=== PATIENT | female | born 1975 | race Caucasian/White ===

== ENCOUNTER 2016-05-25 09:18 | Emergency (ER) | payer BC ==
[~2016-05-25] VITALS: Wt 60.0 kg
[~2016-05-25 09:18] MED LIST: DOXY100T20 PO; FLUC150T17 PO; HYDR-3498 PO; IBUP-1542 PO; METGEL45 TOP; METR500T14 PO; MICO24CM3 VAG
[2016-05-25] MEDS ORDERED: CEFTRIAXONE 250 MG INJ IM ONE (10:00)
[2016-05-25] MEDS ORDERED: LIDOCAINE 1% (MDV) 20 ML INJ IM ONE (10:00)
[2016-05-25] MEDS ORDERED: AZITHROMYCIN 250 MG TAB PO ONE (10:00)
[2016-05-25] MEDS ORDERED: BEN25 PO (10:03)
[2016-05-25] MEDS ORDERED: PRED20TA PO (10:03)
[2016-05-25] MEDS ORDERED: FLUC150T17 PO (10:03)
--- NOTE | 2016-05-25 10:36 | ERD ---
ER Documentation Chief Complaint Date/Time DATE: 05/25/16 TIME: 10:32 Chief Complaint rash to buttocks after botox injections 2 years ago, onset 2 mos of itching HPI 41-year-old female comes in with a rash on the buttocks 2 months after getting what she was told to be Botox injections for breast augmentation 10 years ago. She states that she received an injection from an unlicensed individual and has not done any other work since then. She does not have any history of implants according to her. Patient also comes in with vaginal discharge she has had for 2 months now. Upon electronic medical review it appears that the patient has been here many times in the past for vaginal discharge treated with Diflucan as well as nodule. ROS All systems reviewed and are negative except as per history of present illness. Medications Home Meds Active Scripts Fluconazole* (Diflucan*) 150 Mg Tablet, 150 MG PO ONCE, #1 TAB Prov:JUDY CAMACHO PA-C 05/25/16 Diphenhydramine Hcl* (Benadryl*) 25 Mg Cap, 25 MG PO Q6, #30 CAP Prov:JUDY CAMACHO PA-C 05/25/16 Prednisone* (Prednisone*) 20 Mg Tab, 40 MG PO DAILY for 4 Days, TAB Prov:JUDY CAMACHO PA-C 05/25/16 Hydrocodone Bit-Acetaminophen* ([place]*) 5-325 Mg Tab, 1 TAB PO Q4H Y for SEVERE PAIN LEVEL 7-10, #10 TAB Prov:RUSLAN TATE NP 11/05/15 Doxycycline Hyclate* (Doxycycline Hyclate*) 100 Mg Tablet.dr, 100 MG PO BID for 14 Days, TAB Prov:RUSLAN TATE NP 11/05/15 Metronidazole* (Metronidazole*) 500 Mg Tablet, 500 MG PO BID for 14 Days, TAB Prov:RUSLAN TATE NP 11/05/15 Miconazole Nitrate* (Monistat 3*) 24 Gm Cmb.pf.crm, 1 APPFUL VAG HS for 3 Days, TUB X 3 Prov:RAMIRO MACKENZIE 08/14/15 Metronidazole* (Metronidazole*) 500 Mg Tablet, 500 MG PO BID for 7 Days, TAB Prov:RAMIRO MACKENZIE 08/14/15 Fluconazole* (Diflucan*) 150 Mg Tablet, 150 MG PO ONCE, #2 TAB Prov:RAMIRO MACKENZIE Raheem 08/14/15 Metronidazole* (Metrogel*) 0.75% -45 Gram Gel, 1 APPLIC TOP BID, #1 TUB Prov:SHANNAN LIANG PA-C 07/27/15 Fluconazole* (Diflucan*) 150 Mg Tablet, 150 MG PO ONCE, #1 TAB Prov:SHANNAN LIANG PA-C 07/27/15 Ibuprofen* (Motrin*) 600 Mg Tab, 600 MG PO Q6H Y for PAIN AND OR ELEVATED TEMP, #30 TAB Prov:MARIAM WARD MD 06/07/15 Allergies Allergies: Coded Allergies: Penicillins (Verified Allergy, Unknown, 07/27/15) PMhx/Soc History of Surgery: Yes (hysterectomy) Anesthesia Reaction: No Hx Neurological Disorder: No Hx Respiratory Disorders: No Hx Cardiac Disorders: No Hx Psychiatric Problems: No Hx Miscellaneous Medical Probl: Yes (UTI,Yeast Infection, BREAST AUGMENTATION) Hx Alcohol Use: Yes (social- beer) Hx Substance Use: No Hx Tobacco Use: No Smoking Status: Never smoker Physical Exam Vitals Vital Signs Date Time Temp Pulse Resp B/P Pulse Ox O2 Delivery O2 Flow Rate FiO2 05/25/16 09:22 98.6 60 20 122/78 100 Physical Exam General: Well-developed, well-nourished. The patient appears in no acute distress. HEENT: Head is normocephalic, atraumatic. No scleral icterus. Neck: Supple. Nontender. Lungs: Clear to auscultation. Normal air movement. Heart: Regular rate and rhythm. S1 and S2 are normal. No murmurs, gallops, or rubs. Abdomen: Soft, nontender, nondistended. Bowel sounds are normoactive. : large amount of vaginal discharge in the vault, no CMT tenderness. No bleeding Extremities: No clubbing or cyanosis. Normal pulses. Moving extremities x 4. No weakness. Neurologic: Alert and oriented 3. No focal deficits. Skin: Scant erythema on both buttocks, no nodules, no abscess Results 24 hrs Current Medications Medications (Trade) Dose Ordered Sig/Yolanda Route PRN Reason Start Time Stop Time Status Last Admin Dose Admin Ceftriaxone Sodium (Rocephin) 250 mg ONCE ONCE IM 05/25/16 10:00 2/11/17 10:17 DC 05/25/16 09:57 Lidocaine (Xylocaine 1% (Mdv) 20 ml) 3 ml ONCE ONCE IM 05/25/16 10:00 05/25/16 10:17 DC 05/25/16 09:57 Azithromycin (Zithromax) 1,000 mg ONCE ONCE PO 05/25/16 10:00 05/25/16 10:17 DC 05/25/16 09:57 Procedures/MDM ED course: Patient was given Rocephin 250 mg IM, Zithromax 1 g p.o. MDM: 41-year-old female comes in with vaginitis, as well as what appears to be an allergic reaction from some unknown source of injectionin the buttocks 2 years ago. The skin examination shows a mild allergic reaction without evidence of an abscess, cellulitis or nodules. There is no wound or dehiscence. She was treated with Rocephin and Zithromax given her vaginal discharge she has had for 2 months, no evidence of PID at this time, ovarian torsion, tubo-ovarian abscess. Departure Diagnosis: Primary Impression: Vaginitis Additional Impression: Rash Condition: Good Patient Instructions: Dermatitis, Non-Specific, Vaginitis, Bacterial, Vaginitis , Patti Additional Instructions: Llame al doctor MAANA y patricia jaylon JERRY PARA DENTRO DE 1-2 STILL.Dgale a la secretaria que nosotros le instruimos hacer esta jerry.Avise o llame si dean condicin se empeora antes de la jerry. Regresa aqui si peor o no mejor. JUDY CAMACHO PA-C May 25, 2016 10:36
== END 2016-05-25 10:17 | disposition home or self-care (01) ==
LOC: FTE 09:18
DX: N76.0 Acute vaginitis (principal)
CPT/HCPCS: 87591; 96372; J0696; Z7502; Z7610

== ENCOUNTER 2016-07-25 11:33 | Emergency (ER) | payer BC ==
[~2016-07-25] VITALS: Ht 152.4 cm; Wt 59.0 kg
[~2016-07-25 11:33] MED LIST changes: +BEN25 PO; +PRED20TA PO
[2016-07-25 11:35] VITALS: Ht 152.4 cm; Wt 59.0 kg
[2016-07-25] MEDS ORDERED: KETOROLAC 30 MG INJ IM STA (11:48)
--- NOTE | 2016-07-25 12:03 | ERD ---
ER Documentation Chief Complaint Date/Time DATE: 07/25/16 TIME: 12:00 Chief Complaint back pain HPI This a 41-year-old female who presents the emergency department today complaining of back pain for the past 3-4 months. Patient states that 2 months ago she had x-rays that were negative. States she was told that something might have " dislocated" states that the initial injury occurred when she was taking off a very tight shirt and felt a sharp stabbing her back. She is taking Motrin for pain. States she went to go to a primary care doctor but was told initially did not take her insurance and so she came here. States that when she came to the emergency department the doctor's office called her back and told her they did take her insurance. Patient stated that she thought that the reason she was turned away was for "race relations" .denies any fevers or chills. Denies any shortness of breath or cough. ROS All systems reviewed and are negative except as per history of present illness. Medications Home Meds Active Scripts Acetaminophen* (Tylophen*) 500 Mg Capsule, 1 CAP PO Q6H Y for PAIN AND OR ELEVATED TEMP, #30 CAP Prov:HITESH MITCHELL PA-C 07/25/16 Naproxen* (Naprosyn*) 500 Mg Tablet, 500 MG PO BID Y for PAIN AND/OR INFLAMMATION, #30 TAB Prov:HITESH MITCHELL PA-C 07/25/16 Fluconazole* (Diflucan*) 150 Mg Tablet, 150 MG PO ONCE, #1 TAB Prov:JUDY CAMACHO PA-C 05/25/16 Diphenhydramine Hcl* (Benadryl*) 25 Mg Cap, 25 MG PO Q6, #30 CAP Prov:JUDY CAMACHO PA-C 05/25/16 Prednisone* (Prednisone*) 20 Mg Tab, 40 MG PO DAILY for 4 Days, TAB Prov:JUDY CAMACHO PA-C 05/25/16 Hydrocodone Bit-Acetaminophen* ([place]*) 5-325 Mg Tab, 1 TAB PO Q4H Y for SEVERE PAIN LEVEL 7-10, #10 TAB Prov:RUSLAN TATE NP 11/05/15 Doxycycline Hyclate* (Doxycycline Hyclate*) 100 Mg Tablet.dr, 100 MG PO BID for 14 Days, TAB Prov:RUSLAN TATE NP 11/05/15 Metronidazole* (Metronidazole*) 500 Mg Tablet, 500 MG PO BID for 14 Days, TAB Prov:FRANCISCOMARCOSRUSLAN LARSON POWER WHEELCHAIR MECHANIC 11/05/15 Miconazole Nitrate* (Monistat 3*) 24 Gm Cmb.pf.crm, 1 APPFUL VAG HS for 3 Days, TUB X 3 Prov:RAMIRO MACKENZIE C 08/14/15 Metronidazole* (Metronidazole*) 500 Mg Tablet, 500 MG PO BID for 7 Days, TAB Prov:RAMIRO MACKENZIE C 08/14/15 Fluconazole* (Diflucan*) 150 Mg Tablet, 150 MG PO ONCE, #2 TAB Prov:RAMIRO MACKENZIE Raheem 08/14/15 Metronidazole* (Metrogel*) 0.75% -45 Gram Gel, 1 APPLIC TOP BID, #1 TUB Prov:SHANNAN LIANG PA-C 07/27/15 Fluconazole* (Diflucan*) 150 Mg Tablet, 150 MG PO ONCE, #1 TAB Prov:SHANNAN LIANG PA-C 07/27/15 Ibuprofen* (Motrin*) 600 Mg Tab, 600 MG PO Q6H Y for PAIN AND OR ELEVATED TEMP, #30 TAB Prov:MARIAM WARD MD 06/07/15 Allergies Allergies: Coded Allergies: Penicillins (Verified Allergy, Unknown, 07/27/15) PMhx/Soc History of Surgery: Yes (hysterectomy) Anesthesia Reaction: No Hx Neurological Disorder: No Hx Respiratory Disorders: No Hx Cardiac Disorders: No Hx Psychiatric Problems: No Hx Miscellaneous Medical Probl: Yes (UTI,Yeast Infection, BREAST AUGMENTATION) Hx Alcohol Use: Yes (social- beer) Hx Substance Use: No Hx Tobacco Use: No Physical Exam Vitals Vital Signs Date Time Temp Pulse Resp B/P Pulse Ox O2 Delivery O2 Flow Rate FiO2 07/25/16 11:35 98.1 65 18 106/65 99 Physical Exam Const: No acute distress Head: Atraumatic Eyes: Normal Conjunctiva ENT: Normal External Ears, Nose and Mouth. Neck: Full range of motion..~ No meningismus. Resp: Clear to auscultation bilaterally. No absent breath sounds. No wheezing Cardio: Regular rate and rhythm, no murmurs Abd: Soft, non tender, non distended. Normal bowel sounds Skin: No petechiae or rashes Back: No midline or flank tenderness. No midline tenderness thoracic spine. Tenderness to palpation medial border of right scapula. Full active range of motion at arm. Ext: No cyanosis, or edema. Full active range of motion right arm Neur: Awake and alert Psych: Normal Mood and Affect Results 24 hrs Current Medications Medications (Trade) Dose Ordered Sig/Yolanda Route PRN Reason Start Time Stop Time Status Last Admin Dose Admin Ketorolac Tromethamine (Toradol) 30 mg ONCE STAT IM 07/25/16 11:48 07/25/16 11:49 DC Procedures/MDM This 41-year-old female who presents to the emergency department today complaining of some upper back pain for the past 3-4 months. Patient has had x- rays that are negative. Patient's physical exam is benign with the exception of some tender to palpation along the medial border of the scapula. Patient has full active range of motion of her shoulder there is no evidence of dislocation. Patient has had negative x-rays in the past. Do not feel that she requires repeat imaging at this time. Patient symptoms at this time is consistent with musculoskeletal strain. Low suspicion for acute fracture, dislocation especially given the mechanism of injury and location of her pain. Patient denies any chest pain or shortness of breath or difficulty breathing. She is afebrile and otherwise well-appearing. Her oxygen saturation 99%. Low suspicion for PE, pneumonia, pleural effusion, abscess, pneumothorax. Patient was given a Toradol injection here in the emergency department.Patient will be given a prescription for Naprosyn and Tylenol for home. And the patient 's pain is chronic I do not feel that she would benefit from narcotics at this time. She was instructed to follow back up with the primary care doctor for further evaluation and management possible referral to orthopedics for physical therapy. At this time the patient is stable for discharge and outpatient management. Patient should follow up with their PCP in the next 1-2 days. They may return to the emergency department sooner for any persistent or worsening of symptoms. Patient understood and agreed with the plan. Departure Diagnosis: Primary Impression: Back pain Back pain location: thoracic back pain Chronicity: chronic Back pain laterality: right Qualified Code: M54.6 - Chronic right-sided thoracic back pain Condition: Fair HITESH MITCHELL PA-C Jul 25, 2016 12:03
[2016-07-25] MEDS ORDERED: NAPR-260 PO (12:04)
[2016-07-25] MEDS ORDERED: ACET500C5 PO (12:04)
== END 2016-07-25 12:32 | disposition home or self-care (01) ==
LOC: FTE 11:33
DX: M54.6 Pain in thoracic spine (principal)
CPT/HCPCS: 96372; J1885; Z7502

== ENCOUNTER 2016-07-28 13:22 | Emergency (ER) | payer BC ==
[~2016-07-28] VITALS: Ht 162.6 cm; Wt 59.0 kg
[~2016-07-28 13:22] MED LIST changes: +ACET500C5 PO; +NAPR-260 PO
[2016-07-28 13:36] VITALS: Ht 162.6 cm; Wt 59.0 kg
[2016-07-28] MEDS ORDERED: KETOROLAC 30 MG INJ IM STA (14:17)
--- NOTE | 2016-07-28 14:23 | ERD ---
ER Documentation Chief Complaint Date/Time DATE: 07/28/16 TIME: 14:19 Chief Complaint 10/21 mid back pain x 4 days HPI This is a 41-year-old female presenting to the emergency department for right scapular pain. Patient states she has had this pain on and off for over 3 months however the pain has worsened over the last 2 weeks. Patient states she has had x-ray imaging done before and was told everything was "normal." Patient denies any new injury or trauma to area. Denies chest pain, heart palpitations or shortness of breath. Patient went to her primary care provider but states she was refused to be seen. Patient states about 1 year ago she felt "like a bone popped out." No swelling, erythema, warmth or drainage from the arm. No fevers or chills. No urinary or fecal incontinence. ROS All systems reviewed and are negative except as per history of present illness. Medications Home Meds Active Scripts Ibuprofen* (Motrin*) 600 Mg Tab, 600 MG PO Q6, #15 TAB Prov:TANG BARRETT NP 07/28/16 Acetaminophen* (Tylophen*) 500 Mg Capsule, 1 CAP PO Q6H Y for PAIN AND OR ELEVATED TEMP, #30 CAP Prov:HITESH MITCHELL PA-C 07/25/16 Naproxen* (Naprosyn*) 500 Mg Tablet, 500 MG PO BID Y for PAIN AND/OR INFLAMMATION, #30 TAB Prov:HITESH MITCHELL PA-C 07/25/16 Fluconazole* (Diflucan*) 150 Mg Tablet, 150 MG PO ONCE, #1 TAB Prov:JUDY CAMACHO PA-C 05/25/16 Diphenhydramine Hcl* (Benadryl*) 25 Mg Cap, 25 MG PO Q6, #30 CAP Prov:JUDY CAMACHO PA-C 05/25/16 Prednisone* (Prednisone*) 20 Mg Tab, 40 MG PO DAILY for 4 Days, TAB Prov:JUDY CAMACHO PA-C 05/25/16 Hydrocodone Bit-Acetaminophen* ([place]*) 5-325 Mg Tab, 1 TAB PO Q4H Y for SEVERE PAIN LEVEL 7-10, #10 TAB Prov:RUSLAN TATE NP 11/05/15 Doxycycline Hyclate* (Doxycycline Hyclate*) 100 Mg Tablet.dr, 100 MG PO BID for 14 Days, TAB Prov:RUSLAN TATE NP 11/05/15 Metronidazole* (Metronidazole*) 500 Mg Tablet, 500 MG PO BID for 14 Days, TAB Prov:FRANCISCOMARCOSRUSLAN LARSON [employer]OLDING PROCESS TECHNICIAN 11/05/15 Miconazole Nitrate* (Monistat 3*) 24 Gm Cmb.pf.crm, 1 APPFUL VAG HS for 3 Days, TUB X 3 Prov:GURDEEPRAMIRO Raheem 08/14/15 Metronidazole* (Metronidazole*) 500 Mg Tablet, 500 MG PO BID for 7 Days, TAB Prov:GURDEEPRAMIRO C 08/14/15 Fluconazole* (Diflucan*) 150 Mg Tablet, 150 MG PO ONCE, #2 TAB Prov:GURDEEPRAMIRO Raheem 08/14/15 Metronidazole* (Metrogel*) 0.75% -45 Gram Gel, 1 APPLIC TOP BID, #1 TUB Prov:SHANNAN LIANG PA-C 07/27/15 Fluconazole* (Diflucan*) 150 Mg Tablet, 150 MG PO ONCE, #1 TAB Prov:SHANNAN LIANG PA-C 07/27/15 Ibuprofen* (Motrin*) 600 Mg Tab, 600 MG PO Q6H Y for PAIN AND OR ELEVATED TEMP, #30 TAB Prov:MARIAM WARD MD 06/07/15 Allergies Allergies: Coded Allergies: Penicillins (Verified Allergy, Unknown, 07/28/16) PMhx/Soc History of Surgery: Yes (hysterectomy) Anesthesia Reaction: No Hx Neurological Disorder: No Hx Respiratory Disorders: No Hx Cardiac Disorders: No Hx Psychiatric Problems: No Hx Miscellaneous Medical Probl: Yes (UTI,Yeast Infection, BREAST AUGMENTATION) Hx Alcohol Use: Yes (social- beer) Hx Substance Use: No Hx Tobacco Use: No Physical Exam Vitals Vital Signs Date Time Temp Pulse Resp B/P Pulse Ox O2 Delivery O2 Flow Rate FiO2 07/28/16 13:36 98.1 57 18 106/55 98 Physical Exam Const: No acute distress, alert Head: Atraumatic Eyes: Normal Conjunctiva ENT: Normal External Ears, Nose and Mouth. Neck: Full range of motion..~ No meningismus. Resp: Clear to auscultation bilaterally. No wheezing, rhonchi or crackles. No labored breathing or stridor. Cardio: Regular rate and rhythm, no murmurs Abd: Soft, non tender, non distended. Normal bowel sounds Skin: No petechiae or rashes Back: No midline or flank tenderness Ext: No cyanosis, or edema Neur: Awake and alert Psych: Normal Mood and Affect Results 24 hrs Current Medications Medications (Trade) Dose Ordered Sig/Yolanda Route PRN Reason Start Time Stop Time Status Last Admin Dose Admin Ketorolac Tromethamine (Toradol) 30 mg ONCE STAT IM 07/28/16 14:17 07/28/16 14:19 DC 07/28/16 15:01 Procedures/MDM ED COURSE: The patient was stable throughout ED course. I kept the patient and/or family informed of laboratory and diagnostic imaging results throughout the ED course. Imaging Chest x-ray Patient: OLINDA WERNER : 1975 Age: 41 Sex: F MR #: [id number] DOS: 07/28/16 1417 Ordering MD: TANG BARRETT NP Location: [facility] Room/Bed: PROCEDURE: XR Chest. CLINICAL INDICATION: Chest pain TECHNIQUE: Anterior chest x-ray. COMPARISON: 06/07/2015 FINDINGS: The lungs are clear. No pleural effusion identified. There is no evidence of pneumothorax. The cardiomediastinal silhouette is unremarkable. The soft tissues are normal. Osseous structures are unremarkable. IMPRESSION: 1. No acute disease is seen in the chest. EKG: As reviewed by Dr. Flower Rate/Rhythm: Sinus bradycardia with heart rate 44 bpm QRS, ST, T-waves: No changes consistent w/ acute ischemia Impression: No evidence of ischemia or arrhythmia MDM: 41-year-old female presents emergency department for right scapular back pain. Patient states this is chronic pain over the past 3 months however has worsened the last 2 weeks. Patient was seen here on 07/25/2016 and was treated with Toradol IM. Patient was discharged with Naprosyn and Tylenol and states these medications are not working.Patient given Toradol on the ED and states pain has improved significantly. Chest x-ray reviewed by radiologist as no acute disease is seen in the chest. EKG as reviewed by Dr. Flower shows sinus bradycardia with heart rate [address] elevation. Vital signs remained stable. Oxygen saturation 99% on room air. No signs or symptoms of respiratory distress. No cough, shortness of breath or difficulty breathing. Patient denies chest pain, heart palpitations, weakness or fatigue. Low suspicion for acute LA, NSTEMI, pneumothorax, pleural effusion, pneumonia or surgical etiology. Diagnosis is back pain, musculoskeletal. Patient is appropriate for outpatient management will be given prescription for ibuprofen. Instructed patient to follow-up with primary care provider in the next 2-3 days for reassessment. Resources provided. Return to ED for any high fever, chest pain, difficulty breathing, shortness breath, wheezing, vomiting, diarrhea, abdominal pain or any new or worsening symptoms. Patient verbalizes understanding. All questions answered at discharge. Azeri translation use during this encounter. Departure Diagnosis: Primary Impression: Back pain Chronicity: chronic Back pain laterality: right Sciatica presence: without sciatica Condition: Stable TANG BARRETT NP Jul 28, 2016 14:23
--- NOTE | 2016-07-28 15:06 | RADRPT ---
PROCEDURE: XR Chest. CLINICAL INDICATION: Chest pain TECHNIQUE: Anterior chest x-ray. COMPARISON: 06/07/2015 FINDINGS: The lungs are clear. No pleural effusion identified. There is no evidence of pneumothorax. The cardiomediastinal silhouette is unremarkable. The soft tissues are normal. Osseous structures are unremarkable. IMPRESSION: 1. No acute disease is seen in the chest. RPTAT: QQ .Syd Sherman MD, MD Date Time Electronically viewed and signed by .Syd Sherman MD, MD on 07/28/2016 15:05 .M/
[2016-07-28] MEDS ORDERED: IBUP-1542 PO (15:11)
== END 2016-07-28 15:22 | disposition home or self-care (01) ==
LOC: FTE 13:22
DX: M54.9 Dorsalgia, unspecified (principal); R07.9 Chest pain, unspecified
CPT/HCPCS: 71010; 93005; J1885; 96372

== ENCOUNTER 2016-08-14 07:00 | Emergency (ER) | payer BC ==
[~2016-08-14] VITALS: Ht 157.5 cm; Wt 61.0 kg
[2016-08-14 07:03] VITALS: Ht 157.5 cm; Wt 61.0 kg
[2016-08-14] MEDS ORDERED: morphine 4 MG/ML VIAL IV STA (07:37)
[2016-08-14] MEDS ORDERED: ONDANSETRON 4 MG INJ IV STA ×2 (07:37→09:55)
[2016-08-14] MEDS ORDERED: KETOROLAC 30 MG INJ IV STA (07:40)
[2016-08-14 08:19] LABS: ADD SCAN DIFF NO
[2016-08-14 08:24] LABS: BASOPHIL # 0.1 10^3/ul (0.0-0.1); BASOPHILS % 1.2 % (0.0-2.0); EOSINOPHILS # 0.1 10^3/ul (0.0-0.5); EOSINOPHILS % 2.2 % (0.0-7.0); HEMOGLOBIN 11.8 g/dl (12.0-16.0); LYMPHOCYTES # 1.9 10^3/ul (0.8-2.9); LYMPHOCYTES % 37.5 % (15.0-51.0); MEAN CORPUSCULAR HEMOGLOBIN 31.3 pg (29.0-33.0); MEAN CORPUSCULAR HGB CONC 34.7 g/dl (32.0-37.0); MEAN CORPUSCULAR VOLUME 90.2 fl (82.0-101.0); MEAN PLATELET VOLUME 10.3 fl (7.4-10.4); MONOCYTE # 0.4 10^3/ul (0.3-0.9); MONOCYTES % 8.3 % (0.0-11.0); NEUTROPHIL # 2.5 10^3/ul (1.6-7.5); NEUTROPHILS % 50.4 % (39.0-77.0); PLATELET COUNT 221 10^3/UL (140-415); RED BLOOD COUNT 3.77 10^6/ul (4.20-5.40); RED CELL DISTRIBUTION WIDTH 11.6 % (11.5-14.5); WHITE BLOOD COUNT 4.9 10^3/ul (4.8-10.8)
[2016-08-14 08:25] LABS: ADD UMIC NO; URINE BILIRUBIN (Dip) NEGATIVE (NEGATIVE); URINE BLOOD (Dip) NEGATIVE (NEGATIVE); URINE COLOR LT. YELLOW (YELLOW); URINE GLUCOSE (Dip) NEGATIVE (NEGATIVE); URINE KETONES (Dip) NEGATIVE (NEGATIVE); URINE LEUKOCYTE ESTERASE (Dip) NEGATIVE (NEGATIVE); URINE NITRITE (Dip) NEGATIVE (NEGATIVE); URINE TOTAL PROTEIN (Dip) NEGATIVE (NEGATIVE); URINE UROBILINOGEN (Dip) 0.2 E.U./dL (0.1-1.0)
--- NOTE | 2016-08-14 08:29 | RADRPT ---
PROCEDURE: US Pelvis CLINICAL INDICATION: Left pelvic pain TECHNIQUE: Sonographic evaluation of the pelvis was performed utilizing both transabdominal and tr ansvaginal technique. Curved array transabdominal transducer technique as well as a high frequency endovaginal probe was utilized. Images were reviewed on the high-resolution PACS workstation. COMPARISON: No prior studies are available for comparison. FINDINGS: The uterus is surgically absent. The right ovary measures 3.7 x 2.6 x 2.8 cm in dimension. The left ovary was not visualized. The r ight ovary is normal in size, echogenicity, and morphology. Normal Doppler flow is demonstrated. T here are no adnexal masses. There is no significant free fluid in the pelvis. IMPRESSION: 1. Status post hysterectomy. 2. Normal appearance of the right ovary. 3. The left ovary was not visualized. RPTAT: HH .Seda Vang MD, MD Date Time Electronically viewed and signed by .Seda Vang MD, on 08/14/2016 08:29 .G/
--- NOTE | 2016-08-14 08:30 | RADRPT ---
PROCEDURE: Retroperitoneal US. CLINICAL INDICATION: Flank pain, pelvic pain TECHNIQUE: Multiple sonographic images of the kidneys and retroperitoneum were obtained. The imag es were reviewed on a PACS workstation. COMPARISON: No prior studies are available for comparison. FINDINGS: The kidneys are normal in size, contour, cortical thickness and cortical echogenicity. The right kidney measures 12.2 cm. The left kidney measures 12.1 cm. No kidney stones are visualized. There is no evidence for hydronephrosis. The urinary bladder is decompressed and not well seen. RPTAT: AA IMPRESSION: Unremarkable retroperitoneal ultrasound. .Tarik Kelley MD, MD Date Time Electronically viewed and signed by .Tarik Kelley MD, on 08/14/2016 08:30 .S/
[2016-08-14 08:39] LABS: ALBUMIN 3.4 g/dl (3.3-4.9)
[2016-08-14 08:40] LABS: POTASSIUM 3.6 mmol/L (3.5-5.1)
[2016-08-14 08:42] LABS: ALBUMIN/GLOBULIN RATIO 1.25; BILIRUBIN,INDIRECT 0.4 mg/dl (0-1.1); BILIRUBIN,TOTAL 0.4 mg/dl (0.2-1.3); CREATININE 0.53 mg/dl (0.44-1.00); TOTAL PROTEIN 6.1 g/dl (6.1-8.1)
[2016-08-14 08:43] LABS: CALCIUM 8.4 mg/dl (8.4-10.2)
--- NOTE | 2016-08-14 08:49 | ERD ---
ER Documentation Chief Complaint Date/Time DATE: 08/14/16 TIME: 08:45 Chief Complaint abd pain x 4 days HPI 41-year-old female complaining of left pelvic pain 4 days. Pain is gradual onset and constant. The pain has becoming more generalized over time. She reports decreased appetite and nausea, but no vomiting or diarrhea. History of hysterectomy and hypertension, not taking any medications. Denies fever or chills. Denies dysuria. ROS All systems reviewed and are negative except as per history of present illness. Medications Home Meds Active Scripts Ibuprofen* (Motrin*) 600 Mg Tab, 600 MG PO Q6H Y for PAIN AND OR ELEVATED TEMP, #30 TAB Prov:ANDREW MORTENSEN NP 08/14/16 Ibuprofen* (Motrin*) 600 Mg Tab, 600 MG PO Q6, #15 TAB Prov:TANG BARRETT NP 07/28/16 Acetaminophen* (Tylophen*) 500 Mg Capsule, 1 CAP PO Q6H Y for PAIN AND OR ELEVATED TEMP, #30 CAP Prov:HITESH MITCHELL PA-C 07/25/16 Naproxen* (Naprosyn*) 500 Mg Tablet, 500 MG PO BID Y for PAIN AND/OR INFLAMMATION, #30 TAB Prov:HITESH MITCHELL PA-C 07/25/16 Fluconazole* (Diflucan*) 150 Mg Tablet, 150 MG PO ONCE, #1 TAB Prov:JUDY CAMACHO PA-C 05/25/16 Diphenhydramine Hcl* (Benadryl*) 25 Mg Cap, 25 MG PO Q6, #30 CAP Prov:JUDY CAMACHO PA-C 05/25/16 Prednisone* (Prednisone*) 20 Mg Tab, 40 MG PO DAILY for 4 Days, TAB Prov:JUDY CAMACHO PA-C 05/25/16 Hydrocodone Bit-Acetaminophen* ([place]*) 5-325 Mg Tab, 1 TAB PO Q4H Y for SEVERE PAIN LEVEL 7-10, #10 TAB Prov:RUSLAN TATE NP 11/05/15 Doxycycline Hyclate* (Doxycycline Hyclate*) 100 Mg Tablet.dr, 100 MG PO BID for 14 Days, TAB Prov:RUSLAN TATE NP 11/05/15 Metronidazole* (Metronidazole*) 500 Mg Tablet, 500 MG PO BID for 14 Days, TAB Prov:LEARUSLANGisela Gray NP 11/05/15 Miconazole Nitrate* (Monistat 3*) 24 Gm Cmb.pf.crm, 1 APPFUL VAG HS for 3 Days, TUB X 3 Prov:RAMIRO MACKENZIE C 08/14/15 Metronidazole* (Metronidazole*) 500 Mg Tablet, 500 MG PO BID for 7 Days, TAB Prov:RAMIRO MACKENZIE C 08/14/15 Fluconazole* (Diflucan*) 150 Mg Tablet, 150 MG PO ONCE, #2 TAB Prov:RAMIRO MACKENZIE C 08/14/15 Metronidazole* (Metrogel*) 0.75% -45 Gram Gel, 1 APPLIC TOP BID, #1 TUB Prov:SHANNAN LIANG PA-C 07/27/15 Fluconazole* (Diflucan*) 150 Mg Tablet, 150 MG PO ONCE, #1 TAB Prov:SHANNAN LIANG PA-C 07/27/15 Ibuprofen* (Motrin*) 600 Mg Tab, 600 MG PO Q6H Y for PAIN AND OR ELEVATED TEMP, #30 TAB Prov:MARIAM WARD MD 06/07/15 Allergies Allergies: Coded Allergies: Penicillins (Verified Allergy, Unknown, 07/28/16) PMhx/Soc History of Surgery: Yes (hysterectomy) Anesthesia Reaction: No Hx Neurological Disorder: No Hx Respiratory Disorders: No Hx Cardiac Disorders: No Hx Psychiatric Problems: No Hx Miscellaneous Medical Probl: Yes (UTI,Yeast Infection, BREAST AUGMENTATION) Hx Alcohol Use: Yes (social- beer) Hx Substance Use: No Hx Tobacco Use: No Physical Exam Vitals Vital Signs Date Time Temp Pulse Resp B/P Pulse Ox O2 Delivery O2 Flow Rate FiO2 08/14/16 07:03 98.5 89 18 146/76 99 Physical Exam General: Well-developed, well-nourished, conscious and coherent, in no distress Skin: Warm and dry without rash, good texture and turgor Head: Normocephalic without evidence of trauma Eyes: Sclera and conjunctivae normal; pupils equal, round, and reactive to light; extraocular movements are intact Neck: Supple without meningismus or adenopathy. Carotids are equal. Trachea midline. No bruits or JVD Chest: Normal AP diameter, good expansion without retractions. Nontender. Lungs are clear to auscultate bilaterally with good tidal volume Heart: Regular rate and rhythm. No murmur, rub, or gallop heard Abdomen: Soft, diffusely tender with guarding. No masses or rebound. Bowel sounds are active. No hepatosplenomegaly Back: Without spinal or CVA tenderness Pelvis: Diffusely tender and stable to compression Extremities: Full range of motion. Good strength bilaterally. No clubbing, cyanosis, or edema. Peripheral pulses are intact. Sensation intact Neuro: Alert and oriented. Mental status normal, speech clear. Cranial nerves grossly intact Result Diagram: 08/14/16 0800 08/14/16 0800 Results 24 hrs Laboratory Tests Test 08/14/16 08:00 White Blood Count 4.910^3/ul Red Blood Count 3.7710^6/ul Hemoglobin 11.8g/dl Hematocrit 34.0% Mean Corpuscular Volume 90.2fl Mean Corpuscular Hemoglobin 31.3pg Mean Corpuscular Hemoglobin Concent 34.7g/dl Red Cell Distribution Width 11.6% Platelet Count 29990^3/UL Mean Platelet Volume 10.3fl Neutrophils % 50.4% Lymphocytes % 37.5% Monocytes % 8.3% Eosinophils % 2.2% Basophils % 1.2% Nucleated Red Blood Cells % 0.0/100WBC Neutrophils # 2.510^3/ul Lymphocytes # 1.910^3/ul Monocytes # 0.410^3/ul Eosinophils # 0.110^3/ul Basophils # 0.110^3/ul Nucleated Red Blood Cells # 0.010^3/ul Urine Color LT. YELLOW Urine Clarity CLEAR Urine pH 6.0 Urine Specific [place] 1.025 Urine Ketones NEGATIVE Urine Nitrite NEGATIVE Urine Bilirubin NEGATIVE Urine Urobilinogen 0.2 E.U./dL Urine Leukocyte Esterase NEGATIVE Urine Hemoglobin NEGATIVE Urine Glucose NEGATIVE% Urine Total Protein NEGATIVE Sodium Level 142mmol/L Potassium Level 3.6mmol/L Chloride Level 109mmol/L Carbon Dioxide Level 25mmol/L Anion Gap 12 Blood Urea Nitrogen 12mg/dl Creatinine 0.53mg/dl Glucose Level 67mg/dl Calcium Level 8.4mg/dl Total Bilirubin 0.4mg/dl Direct Bilirubin 0.00mg/dl Indirect Bilirubin 0.4mg/dl Aspartate Amino Transf (AST/SGOT) 24IU/L Alanine Aminotransferase (ALT/SGPT) 23IU/L Alkaline Phosphatase 52IU/L Total Protein 6.1g/dl Albumin 3.4g/dl Globulin 2.70g/dl Albumin/Globulin Ratio 1.25 Lipase 155U/L Current Medications Medications (Trade) Dose Ordered Sig/Yolanda Route PRN Reason Start Time Stop Time Status Last Admin Dose Admin Morphine Sulfate (morphine) 4 mg ONCE STAT IV 08/14/16 07:37 08/14/16 07:41 DC Ondansetron HCl (Zofran Inj) 4 mg ONCE STAT IV 08/14/16 07:37 08/14/16 07:40 DC 08/14/16 08:24 Ketorolac Tromethamine (Toradol) 30 mg ONCE STAT IV 08/14/16 07:40 08/14/16 07:42 DC 08/14/16 08:23 Morphine Sulfate (morphine) 4 mg ONCE ONCE IM 08/14/16 10:00 08/14/16 10:01 DC 08/14/16 10:29 Ondansetron HCl (Zofran Inj) 4 mg ONCE STAT IV 08/14/16 09:55 08/14/16 09:56 DC 08/14/16 10:28 PROCEDURE: US Pelvis. CLINICAL INDICATION: Pelvic pain. TECHNIQUE: Multiple sonographic images of the pelvis were obtained utilizing endovaginal technique. The images were reviewed on a PACS workstation. COMPARISON: Transabdominal study from earlier the same date. FINDINGS: The uterus is surgically absent. The right ovary has a normal echotexture and measures 3.9 x 2.4 x 2.7 cm. There is a 2.0 cm hemorrhagic cyst in the right ovary. The left ovary has a normal echotexture and measures 3.7 x 1.5 x 2.4 cm. There is no free fluid in the cul-de-sac. No adnexal masses are noted. Normal Doppler flow seen to both ovaries. IMPRESSION: 1. Previous hysterectomy. 2. 2.0 cm hemorrhagic cyst in the right ovary. 3. No evidence of ovarian torsion. RPTAT: [facility] Jaime Crowe Physician Date Time Electronically viewed and signed by Jaime Crowe Physician on 08/14/2016 10: 58 JH/ CC: ANDREW MORTENSEN. [facility] PA[facility] Procedures/MDM Well-appearing 41-year-old female presented ED with pelvic pain 4 days. CBC, CMP, lipase, and UA are all unremarkable. Renal ultrasound negative hydronephrosis. Pelvic ultrasound is negative for ovarian torsion. Patient has history of hysterectomy, her test is negative. I doubt ectopic . She was seen here 1 year ago for similar pain. CT at that time were unremarkable except for a nonobstructing stone in the right kidney. I think likely the cause of her pain will be recurrent kidney stone with colic. Toradol and morphine IV given to the patient in the ED for pain. Patient is currently comfortable and pain-free. Patient appears well, stable for discharge and outpatient management. Patient advised to increase fluid intake. Medical decision making shared with patient and family. Education provided to patient and family. Patient and family expressed understanding of the plan. Medications on discharge: Ibuprofen. Follow-up: Primary care provider in 2-3 days or return to ED if worse. Departure Diagnosis: Primary Impression: Pelvic pain Condition: Good ANDREW MORTENSEN NP August 14, 2016 08:49
[2016-08-14] MEDS ORDERED: morphine 10 MG INJ IM ONE (10:00)
--- NOTE | 2016-08-14 10:59 | RADRPT ---
PROCEDURE: US Pelvis. CLINICAL INDICATION: Pelvic pain. TECHNIQUE: Multiple sonographic images of the pelvis were obtained utilizing endovaginal technique . The images were reviewed on a PACS workstation. COMPARISON: Transabdominal study from earlier the same date. FINDINGS: The uterus is surgically absent. The right ovary has a normal echotexture and measures 3.9 x 2.4 x 2.7 cm. There is a 2.0 cm hemorrhagic cyst in the right ovary. The left ovary has a normal echotext ure and measures 3.7 x 1.5 x 2.4 cm. There is no free fluid in the cul-de-sac. No adnexal masses are noted. Normal Doppler flow seen to both ovaries. IMPRESSION: 1. Previous hysterectomy. 2. 2.0 cm hemorrhagic cyst in the right ovary. 3. No evidence of ovarian torsion. RPTAT: [facility] Physician Madeleine Date Time Electronically viewed and signed by Physician Madeleine on 08/14/2016 10:58 CAROL/
[2016-08-14] MEDS ORDERED: IBUP-1542 PO (11:20)
[2016-08-14 11:35] VITALS: BP 130/72; PULSE 64; RESP 18; TEMP 97.3
== END 2016-08-14 11:35 | disposition home or self-care (01) ==
LOC: FTE 07:00
DX: R10.2 Pelvic and perineal pain (principal); R11.0 Nausea; I10 Essential (primary) hypertension
CPT/HCPCS: 76775; 76830; 76856; 80053; 81003; 83690; 85025; J1885; J2270; J2405; 36415; 96372; 96374; 96375; 96376

== ENCOUNTER 2016-11-28 15:11 | Emergency (ER) | END 2016-11-28 16:25 | disposition home or self-care (01) | DX: N76.0 Acute vaginitis (principal) | CPT/HCPCS: 81001; Z7502 ==

== ENCOUNTER 2017-02-01 13:07 | Emergency (ER) | payer SELFPAY ==
[~2017-02-01] VITALS: Ht 157.5 cm; Wt 56.0 kg
[~2017-02-01 13:07] MED LIST changes: +CLOT30CR24 TOP; +METR500T PO
[2017-02-01 13:10] VITALS: Ht 157.5 cm; Wt 56.0 kg
[2017-02-01] MEDS ORDERED: IBUPROFEN 200 MG TAB PO ONE (15:30)
--- NOTE | 2017-02-01 15:32 | RADRPT ---
PROCEDURE: XR Right Ankle. CLINICAL INDICATION: Trauma 1 month ago. Right ankle pain. TECHNIQUE: 3 views. Frontal, lateral, and oblique. COMPARISON: None. FINDINGS: There is no fracture or dislocation. The soft tissues are normal. Articular surfaces are intact. There is no lytic or blastic lesion. There is no radiopaque foreign body. IMPRESSION: 1. Normal images of the right ankle. RPTAT: QQ .Samuel Royal MD, MD Date Time Electronically viewed and signed by .Samuel Royal MD, on 02/01/2017 15:32 .R/
[2017-02-01] MEDS ORDERED: NAPR-260 PO (15:43)
--- NOTE | 2017-02-02 19:59 | ERD ---
ER Documentation Chief Complaint Chief Complaint pt bib self with c/o right ankle pain twisted it approx 1 month ago HPI Patient is a 42-year-old female presents to the emergency department with complaints of right ankle pain after twisting it approximately 1 month ago. Associated symptoms include daily pain, swelling, symptoms are worse with walking. Patient took no medication for relief of symptoms. She denies any other injuries or symptoms currently. ROS All systems reviewed and are negative except as per history of present illness. Medications Home Meds Active Scripts Naproxen* (Naprosyn*) 500 Mg Tablet, 500 MG PO BID Y for PAIN AND/OR INFLAMMATION, #20 TAB Prov:PABLO HUSSEIN PA-C 02/01/17 Clotrimazole* (Clotrimazole* AF) 1% - 30 Gm Cream.gm., 1 APPLIC TOP BID for 7 Days, TUB Prov:EUSEBIO BEGUM PA-C 11/28/16 Metronidazole* (Flagyl*) 500 Mg Tablet, 500 MG PO TID for 5 Days, TAB Prov:EUSEBIO BEGUM PA-C 11/28/16 Ibuprofen* (Motrin*) 600 Mg Tab, 600 MG PO Q6H Y for PAIN AND OR ELEVATED TEMP, #30 TAB Prov:ANDREW MORTENSEN INSPECTOR AIDE 08/14/16 Ibuprofen* (Motrin*) 600 Mg Tab, 600 MG PO Q6, #15 TAB Prov:TANG BARRETT INSPECTOR AIDE 07/28/16 Acetaminophen* (Tylophen*) 500 Mg Capsule, 1 CAP PO Q6H Y for PAIN AND OR ELEVATED TEMP, #30 CAP Prov:HITESH MITCHELL PA-C 07/25/16 Naproxen* (Naprosyn*) 500 Mg Tablet, 500 MG PO BID Y for PAIN AND/OR INFLAMMATION, #30 TAB Prov:HITESH MITCHELL PA-C 07/25/16 Fluconazole* (Diflucan*) 150 Mg Tablet, 150 MG PO ONCE, #1 TAB Prov:JUDY CAMACHO PA-C 05/25/16 Diphenhydramine Hcl* (Benadryl*) 25 Mg Cap, 25 MG PO Q6, #30 CAP Prov:JUDY CAMACHO PA-C 05/25/16 Prednisone* (Prednisone*) 20 Mg Tab, 40 MG PO DAILY for 4 Days, TAB Prov:JUDY CAMACHO PA-C 05/25/16 Hydrocodone Bit-Acetaminophen* ([place]*) 5-325 Mg Tab, 1 TAB PO Q4H Y for SEVERE PAIN LEVEL 7-10, #10 TAB Prov:RUSLAN TATE NP 11/05/15 Doxycycline Hyclate* (Doxycycline Hyclate*) 100 Mg Tablet.dr, 100 MG PO BID for 14 Days, TAB Prov:RUSLAN TATE NP 11/05/15 Metronidazole* (Metronidazole*) 500 Mg Tablet, 500 MG PO BID for 14 Days, TAB Prov:RUSLAN TATE NP 11/05/15 Miconazole Nitrate* (Monistat 3*) 24 Gm Cmb.pf.crm, 1 APPFUL VAG HS for 3 Days, TUB X 3 Prov:RAMIRO MACKENZIE 08/14/15 Metronidazole* (Metronidazole*) 500 Mg Tablet, 500 MG PO BID for 7 Days, TAB Prov:RAMIRO MACKENZIE 08/14/15 Fluconazole* (Diflucan*) 150 Mg Tablet, 150 MG PO ONCE, #2 TAB Prov:RAMIRO MACKENZIE 08/14/15 Metronidazole* (Metrogel*) 0.75% -45 Gram Gel, 1 APPLIC TOP BID, #1 TUB Prov:SHANNAN LIANG PA-C 07/27/15 Fluconazole* (Diflucan*) 150 Mg Tablet, 150 MG PO ONCE, #1 TAB Prov:SHANNAN LIANG PA-C 07/27/15 Ibuprofen* (Motrin*) 600 Mg Tab, 600 MG PO Q6H Y for PAIN AND OR ELEVATED TEMP, #30 TAB Prov:MARIAM WARD MD 06/07/15 Allergies Allergies: Coded Allergies: Penicillins (Verified Allergy, Unknown, 07/28/16) PMhx/Soc History of Surgery: Yes (hysterectomy) Anesthesia Reaction: No Hx Neurological Disorder: No Hx Respiratory Disorders: No Hx Cardiac Disorders: No Hx Psychiatric Problems: No Hx Miscellaneous Medical Probl: Yes (UTI,Yeast Infection, BREAST AUGMENTATION) Hx Alcohol Use: Yes (social- beer) Hx Substance Use: No Hx Tobacco Use: No Smoking Status: Never smoker Physical Exam Vitals Vital Signs Date Time Temp Pulse Resp B/P Pulse Ox O2 Delivery O2 Flow Rate FiO2 02/01/17 13:10 98.6 57 18 140/70 99 Physical Exam Const: Nontoxic, well-appearing female in no acute distress. Head: Atraumatic Eyes: Normal Conjunctiva ENT: Normal External Ears, Nose and Mouth. Ext: Mild tenderness palpation over the lateral malleolus of the right ankle with associated mild ecchymosis and swelling. Full range of motion of the right ankle. 2+ DP pulses. Neur: Awake and alert Psych: Normal Mood and Affect Results 24 hrs Current Medications Medications (Trade) Dose Ordered Sig/Yolanda Route PRN Reason Start Time Stop Time Status Last Admin Dose Admin Ibuprofen (Motrin) 400 mg ONCE ONCE PO 02/01/17 15:30 02/01/17 15:31 DC 02/01/17 15:32 Procedures/MDM 42-year-old female presents to the emergency department with complaints of right ankle pain after injury 1 month ago. X-ray showed no evidence of fracture. Symptoms are likely secondary to right ankle sprain. The patient was placed in an Caleb wrap and was neurovascularly intact post application. She declined crutches here. She is to follow-up with her primary care physician in the next 1-2 days. She may return immediately for any new or worsening symptoms. PROCEDURE: XR Right Ankle. CLINICAL INDICATION: Trauma 1 month ago. Right ankle pain. TECHNIQUE: 3 views. Frontal, lateral, and oblique. COMPARISON: None. FINDINGS: There is no fracture or dislocation. The soft tissues are normal. Articular surfaces are intact. There is no lytic or blastic lesion. There is no radiopaque foreign body. IMPRESSION: 1. Normal images of the right ankle. RPTAT: QQ .Samuel Royal MD, MD Date Time Electronically viewed and signed by .Samuel oRyal MD, MD on 02/01/2017 15:32 Departure Diagnosis: Primary Impression: Right ankle sprain Encounter type: initial encounter Involved ligament of ankle: unspecified ligament Qualified Code: S93.401A - Sprain of right ankle, unspecified ligament, initial encounter Condition: Fair Patient Instructions: Treating Ankle Sprains Additional Instructions: No mas mejor en 2-3 virk, regresar. Mas peor en 24 horas, regresear rapidamente. Ir a doctor primario en 1-2 virk. Usar instrucciones cuando iraj medicamento. PABLO HUSSEIN PA-C Feb 02, 2017 19:59
== END 2017-02-01 15:50 | disposition home or self-care (01) ==
LOC: FTE 13:07
DX: S93.401A Sprain of unspecified ligament of right ankle, initial encounter (principal); X50.9XXA Other and unspecified overexertion or strenuous movements or postures, initial encounter; Y92.9 Unspecified place or not applicable

== ENCOUNTER 2017-04-23 06:05 | Emergency (ER) | END 2017-04-23 08:15 | disposition home or self-care (01) ==

== ENCOUNTER 2018-01-03 15:51 | Emergency (ER) | END 2018-01-03 18:16 | disposition home or self-care (01) ==

== ENCOUNTER 2018-01-09 10:12 | Emergency (ER) | END 2018-01-09 14:23 | disposition left against medical advice (07) ==